=== PATIENT | female | born 1990 | race Caucasian/White ===

== ENCOUNTER 2017-07-17 17:19 | Emergency (ER) | payer SELFPAY ==
[2017-07-17 17:53] VITALS: BP 123/85
== END 2017-07-17 18:32 | disposition left against medical advice (07) ==
LOC: UCEAST 17:19
DX: S29.9XXA Unspecified injury of thorax, initial encounter (principal); W19.XXXA Unspecified fall, initial encounter; Y93.9 Activity, unspecified; Y92.9 Unspecified place or not applicable; Z53.21 Procedure and treatment not carried out due to patient leaving prior to being seen by health care provider

== ENCOUNTER 2018-02-03 15:16 | Emergency (ER) | payer SELFPAY ==
[2018-02-03 15:24] VITALS: BP 123/86
--- NOTE | 2018-02-03 16:22 | UC ---
Respiratory Complaint HPI - HPI Summary HPI Summary: 27-year-old female presents with 4 day history of nasal congestion, nasal discharge, occasionally productive cough for clear to yellow sputum, and some mild shortness of breath. Associated with some bilateral chest wall discomfort especially with deep breath or cough. Denies fevers, chills, ear pain or drainage, sore throat, abdominal pain, nausea, or vomiting. Has history of environmental allergies. Been using an qpwl-gwl-dyzosjh allergy medication. She does reports smoking 5-6 cigarettes a day. No sick contact. - History of Current Complaint Chief Complaint: UCRespiratory Stated Complaint: URI Time Seen by Provider: 02/03/18 15:45 Hx Obtained From: Patient Hx Last Menstrual Period: 2 wks ago ?: No Onset/Duration: Gradual Onset Severity Initially: Mild Severity Currently: Mild Pain Intensity: 0 Aggravating Factors: Deep Breaths Alleviating Factors: Nothing Associated Signs And Symptoms: Positive: URI. Negative: Fever, Chills, Wheezing , Hemoptysis, Dizziness, Calf Pain, Calf Swelling, Edema Related History: Seasonal Allergies - Allergies/Home Medications Allergies/Adverse Reactions: Allergies Allergy/AdvReac Type Severity Reaction Status Date / Time codeine Allergy Unknown Verified 02/03/18 15:25 Reaction Details Penicillins Allergy Unknown Verified 02/03/18 15:25 Reaction Details PMH/Surg Hx/FS Hx/Imm Hx - Additional Past Medical History Additional PMH: Noncontributory - Surgical History Surgical History: None - Family History Known Family History: Positive: Hypertension - Social History Occupation: Employed Full-time Lives: With Family Alcohol Use: None Substance Use Type: None Smoking Status (MU): Light Every Day Tobacco Smoker Type: Cigarettes - Immunization History Most Recent Influenza Vaccination: not yet this season Most Recent Tetanus Shot: 01/2015 Most Recent Pneumonia Vaccination: none Review of Systems Constitutional: Negative Skin: Negative Eyes: Negative ENT: Nasal Discharge, Sinus Congestion Respiratory: Shortness Of Breath - Mild, Cough Cardiovascular: Negative Gastrointestinal: Negative Is Patient Immunocompromised?: No All Other Systems Reviewed And Are Negative: Yes Physical Exam Triage Information Reviewed: Yes Appearance: Well-Appearing, No Pain Distress, Well-Nourished Vital Signs: Initial Vital Signs Temp 98.5 F 02/03/18 15:22 Pulse 114 02/03/18 15:22 Resp 12 02/03/18 15:22 BP 123/86 02/03/18 15:22 Pulse Ox 99 02/03/18 15:22 Vital Signs Reviewed: Yes Eyes: Positive: Conjunctiva Clear. Negative: Discharge ENT: Positive: Hearing grossly normal, Nasal congestion, Nasal drainage, TMs normal, Uvula midline. Negative: Pharyngeal erythema, Tonsillar swelling, Tonsillar exudate, Sinus tenderness Neck: Positive: Supple, Nontender, No Lymphadenopathy Respiratory: Positive: Lungs clear, Normal breath sounds, No respiratory distress, Other: - Nonproductive cough Cardiovascular: Positive: RRR, No Murmur, Tachycardia - Mild Neurological: Positive: Alert Skin Exam: Normal Diagnostic Evaluation - Laboratory O2 Sat by Pulse Oximetry: 99 Respiratory Course/Dx - Course Course Of Treatment: 27-year-old female with 4 day history of upper respiratory infection symptoms. Afebrile. Bilateral breath sounds clear. Suspect that her symptoms are viral in origin. Recommend symptomatic treatment using saline irrigations, xdal-kxv-kxobkri decongestant, ftdq-ias-jpdecht analgesics, and Tessalon Perles one Every 8 hours as needed for cough. She is to return to follow up with her primary care provider in 7 days if symptoms persist or sooner for any worsening of symptoms. - Differential Dx/Diagnosis Differential Diagnosis/HQI/PQRI: Bronchitis, Lower Resp Infection Provider Diagnoses: Acute viral upper respiratory infection Discharge - Sign-Out/Discharge Documenting (check all that apply): Patient Departure All imaging exams completed and their final reports reviewed: No Studies - Discharge Plan Condition: Stable Disposition: HOME Prescriptions: Benzonatate CAP* [Tessalon 100 MG CAP*] 100 mg PO TID PRN #30 cap PRN Reason: Cough Patient Education Materials: Upper Respiratory Infection (ED) Forms: *Work Release Referrals: No Primary Care Phys,NOPCP [Primary Care Provider] - Additional Instructions: Your symptoms appear to be from a viral infection. Viruses do not respond to antibiotics therefore we typically treat symptoms only. Viral infections typically lasts anywhere from 7-10 days. I would recommend using a saline irrigation such as Netti Pot couple times a day to help with the nasal congestion. Take an qzvh-yzq-xxwnqgg decongestant such as Sudafed according to directions. I have given you a prescription for Tessalon Perles 1 capsule every 8 hours as needed for cough. Return or follow-up with your primary care provider in 7 days if there is no improvement in your symptoms. Seek immediate medical attention have a persistent fever greater than 100.5 despite taking an dhqm-crf-qilzdkx acetaminophen (Tylenol) or ibuprofen (Advil, Motrin), he have any severe chest pain, increased shortness of breath, become weak or dizzy, or have any worsening of symptoms. You did have a mildly elevated blood pressure today in the clinic. I would recommend that you scheduled appointment with a primary care provider for further evaluation of this. - Billing Disposition and Condition Condition: STABLE Disposition: Home
== END 2018-02-03 16:34 | disposition home or self-care (01) ==
LOC: UCEAST 15:16
DX: J06.9 Acute upper respiratory infection, unspecified (principal); B97.89 Other viral agents as the cause of diseases classified elsewhere; F17.210 Nicotine dependence, cigarettes, uncomplicated; Z88.5 Allergy status to narcotic agent; Z88.0 Allergy status to penicillin
CPT/HCPCS: 99212; G0463

== ENCOUNTER 2019-02-10 08:52 | Emergency (ER) | payer OTHER ==
[2019-02-10 09:00] VITALS: BP 128/78
--- OUTSIDE RECORDS SUMMARY | 2019-02-10 09:00 | XMS REPORT | Continuity of Care Document ---
:1990 Author Organization [facility] Address [address] [place] [address] Phone Care Team Providers Name Role Phone Marianna Ortega NP Unavailable Unavailable Allergies, Adverse Reactions, Alerts Substance Reaction Status Penicillins Unknown Active codeine Unknown Active Medications Medication Instructions Dosage Effective Dates Status Comments (start - stop) CHARAN (28) 3 mg-0.02 take 1 tablet by oral 1.00 tablet - Active mg tablet route every day Nexplanon 68 mg Insert in clinic - Active subdermal implant Problems Condition Effective Dates (start - Clinical Status Comments stop) Encounter for oth general cnsl - and advice on contraception Enctr srvlnc implantable subdermal contraceptive Adverse effect of oth estrogens and progestogens, init Encounter for test, result negative Enctr srvlnc implantable subdermal contraceptive Enctr for init prescription of implntbl subdermal contracep Encounter for test, result negative Encounter for initial prescription of other contraceptives Encounter for initial prescription of other contraceptives Procedures Procedure Date OFFICE/OUTPATIENT VISIT, EST BLOOD PRESSURE Height/Weight OTHER Medical Services Contraceptive Plant Facilities Technician.Svc. Other Plant Facilities Technician.Svc. STI Results Test Name Date and Time Measure Units Reference Range Abnormal Flag Status Comments No information Advance Directives Directive Yes / No Effective Date File Name No information Encounters Encounter Practice Location Reason(s) For Diagnoses Date Provider Providers Description Visit Copied on Encounter OFFICE/OUTPA [facility] Encounter for [place] Referring TIENT VISIT, [facility] [place] Bleeding on oth general cnsl Marianna. Provider: AWILDA Grimaldo [facility] (chief and advice on [address] complaint) contraceptionEnc [place], [address] [place] [address] [place] implantable [place], St, [place], [place], [place]mal [place], [place], contraceptive[place] [address], [place], [address]. [id number], erse effect of [place]. [place] oth estrogens tel:+[phone] and [phone] progestogens, init [facility] Encounter for Barb Referring [facility] [place] test, Fany. Provider: [facility] result [address] negativeEnctr [place], [place], [address], [address] [place] implantable [place], [address], [place], [place], contraceptive[place] [address], [place], [address]. [id number], tr for init [place]. tel:+ [place] prescription of tel:+ [phone] tel:[phone] implntbl [phone] subdermal contracep [facility] Encounter for iGlbert Referring [facility] [place] test, Brian. Provider: [facility] result [address] negativeEncounte [place], [place], [address], [address] [place] prescription of [place], [address] [place], [place], [place], contrace[place] [address]. [place], [address]. [id number], tel:+[phone] tel:[phone] tel:+ [phone] [facility] Encounter for [facility] [place] initial . Southern prescription of [address] [place], [address] [place], [place], [place], [address]. [id number], tel:[phone] [place] [phone] tel:[phone] Family History Family Member Diagnosis Age At Onset 1st degree relative No hx of coronary heart disease (female <65, male <55) 1st degree relative No hx of venous thromboembolism Immunizations Vaccine Date Status Comments No information Payers Payer name Insurance type Covered republican ID Authorization(s) Cristobal HOOKER [facility] CI [id number] Social History Type Description Quantity Date Captured Comments Alcohol Use Details Unknown Caffeine Use Unknown Details Tobacco Use Status Smoking Status Light tobacco smoker Smoking Tobacco Use Cigarette: No Details Available Cigarette: 4 Cigarettes per day Details Sex Female Vital Signs Date / Height Weight BMI Pulse Blood Temperature Respiratory Body Head BMI Pulse Inhaled Time: Rate Pressure Rate Surface Circumference percentile Ox Ox Area 64.00 181.00 31.0 in lbs 7 mm[Hg] 9:19 kg/m AM eter (2) Chief Complaint And Reason For Visit Most recent encounter only, dated '01/31/2019 09:20'. Breakthrough Bleeding on BCM (chief complaint) Reason For Referral Reason For Referral No information Plan Of Treatment Date Type Action Status No information History Of Present Illness Encounter Date Complaint History Of Present Illness No information Functional Status Date Functional Assessment No information Medications Administered Medication Instructions Dosage Effective Dates (start - stop) Status Comments No information Instructions Date Instruction Additional Information No information Assessments Type Assessment Date assessment Encounter for oth general cnsl and advice on contraception 2018 assessment Enctr srvlnc implantable subdermal contraceptive assessment Adverse effect of oth estrogens and progestogens, init Goals Health Concern Goal Type Priority Status Date No information Medical Equipment Description Device [employer] Device Identifier Effective Dates (start - stop ) Status No information Mental Status Date Cognitive Assessment Normal Orientation Health Concerns Observation Date No information Concern Status Date No information
--- NOTE | 2019-02-10 09:42 | UC ---
Throat Pain/Nasal Guerrero HPI - HPI Summary HPI Summary: 28-year-old woman comes in with chief complaint of 3 days of sore throat and feeling ill. Throats worse when she swallows. She has some pain radiating towards the right ear. In the last day she is developed some low back pain and thoracic back pain. Denies any posterior neck pain or difficulty with range of motion of her neck. No headache. No fevers measured. No abdominal pain no change in urine or bowels. - History of Current Complaint Chief Complaint: UCGeneralIllness Stated Complaint: SORE THROAT EAR PAIN BACK PAIN Time Seen by Provider: 02/10/19 09:19 Hx Last Menstrual Period: 01/26/19 Pain Intensity: 8 - Allergies/Home Medications Allergies/Adverse Reactions: Allergies Allergy/AdvReac Type Severity Reaction Status Date / Time codeine Allergy Unknown Verified 02/10/19 09:01 Reaction Details Penicillins Allergy Unknown Verified 02/10/19 09:01 Reaction Details PMH/Surg Hx/FS Hx/Imm Hx Previously Healthy: Yes - Surgical History Surgical History: None - Family History Known Family History: Positive: Hypertension - Social History Alcohol Use: None Substance Use Type: None Smoking Status (MU): Light Every Day Tobacco Smoker Type: Cigarettes - Immunization History Most Recent Influenza Vaccination: not yet this season Most Recent Tetanus Shot: 01/2015 Most Recent Pneumonia Vaccination: none Review of Systems All Other Systems Reviewed And Are Negative: Yes Constitutional: Positive: Other - SEE HPI Skin: Positive: Negative Eyes: Positive: Negative ENT: Positive: Sore Throat, Ear Ache Respiratory: Positive: Negative Cardiovascular: Positive: Negative Gastrointestinal: Positive: Negative Motor: Positive: Negative Neurovascular: Positive: Negative Musculoskeletal: Positive: Negative Neurological: Positive: Negative Psychological: Positive: Negative Is Patient Immunocompromised?: No Physical Exam Triage Information Reviewed: Yes Appearance: No Pain Distress, Well-Nourished, Ill-Appearing - MILD Vital Signs: Initial Vital Signs Temp 99.6 F 02/10/19 08:57 Pulse 110 02/10/19 08:57 Resp 20 02/10/19 08:57 BP 128/78 02/10/19 08:57 Pulse Ox 100 02/10/19 08:57 Vital Signs Reviewed: Yes Eye Exam: Normal Eyes: Positive: Conjunctiva Clear ENT: Positive: Pharyngeal erythema, Nasal congestion, TMs normal, Tonsillar swelling - 2+ B/L, NO PERITONSILLAR ABSCESS, Tonsillar exudate, Uvula midline. Negative: Muffled voice, Hoarse voice Neck: Positive: Supple Respiratory: Positive: Lungs clear, Normal breath sounds, No respiratory distress Cardiovascular: Positive: RRR Musculoskeletal: Positive: Strength Intact, ROM Intact Neurological: Positive: Alert, Muscle Tone Normal Psychological: Positive: Age Appropriate Behavior Skin Exam: Normal Throat Pain/Nasal Course/Dx - Differential Dx/Diagnosis Provider Diagnosis: Strep pharyngitis Discharge ED - Sign-Out/Discharge Documenting (check all that apply): Patient Departure All imaging exams completed and their final reports reviewed: No Studies - Discharge Plan Condition: Stable Disposition: HOME Prescriptions: Cephalexin CAP* [Keflex CAP*] 500 mg PO TID #30 cap Patient Education Materials: Strep Throat (ED) Forms: *Work Release Referrals: [facility] [Outside] Additional Instructions: FOLLOW UP WITH YOUR DOCTOR IF NOT COMPLETELY IMPROVED. GET RECHECKED SOONER IF YOUR CONDITION WORSENS OR ANY QUESTIONS OR CONCERNS. - Billing Disposition and Condition Condition: STABLE Disposition: Home
== END 2019-02-10 09:49 | disposition home or self-care (01) ==
LOC: UCEAST 08:52
DX: J02.0 Streptococcal pharyngitis (principal); F17.210 Nicotine dependence, cigarettes, uncomplicated; Z88.5 Allergy status to narcotic agent; Z88.0 Allergy status to penicillin
CPT/HCPCS: 87651; 99212; G0463